=== PATIENT | female | born 1940 | race Caucasian/White ===

== ENCOUNTER 2017-01-23 20:08 | Inpatient (IN) | payer OTHER ==
[~2017-01-23] VITALS: Ht 170.2 cm; Wt 125.9 kg
[~2017-01-23 20:08] MED LIST: ABILIFY2 MG PO; ACETAMINOPHEN325 MG PO; ALLOPURINOL100 M1 PO; AMOXICILLIN/CL875 MG PO; BACTRIM DS1 TAB PO; CARDIZEM C1 PO; COUMADIN3 MG PO; COUMADIN4 MG PO; DULCOLAX5 MG PO; FUROSEMIDE20 MG PO; HUMALOG100 MG/ML SC; KLOR-CON 1010 MEQ PO; LASIX40 MG PO; LEVEMIR FL100 UNIT/M SC; LISINOPRIL10 MG PO; LOPERAMIDE HCL2 MG PO; MAG-OX 400400 MG PO; MILK OF MAGNESI10 ML; MULTIPLE VITAMIN PO; MYLANT1 PO; NIZORAL2 %; OSCAL PO; PANTOPRAZOLE SO40 MG PO; PRAVACHOL20 MG PO; SENNA-LAX8.6 MG PO; TRIAMCINOLONE0.025 %; VITAMIN D-31000 UNIT PO; WARFARIN SODIUM3 MG PO; WELLBUTRIN100 MG PO; [UNRECOGNIZED DRUG - OTHER] PO
--- NOTE | 2017-01-23 22:14 | ED ORDER SUMMARY ---
..... Patient: MAYURI BRIAN OrderSheet [facility] VisitID: [id number] [place] [place] [address] 76y, F Registration Date/Time: 01/23/2017 ORDER SHEET Weight: 134.7 kg (measured) Allergies: Iodine, Latex GENERAL ORDERS: Blood Culture (No) (N/A) Urgent (20:19 01/23/2017 Luis SALMON) (Ack 21:03 Hemalatha) (21:13 RCollier R.N.) Transformer Assembly Supervisor (Continuous) (20:20 01/23/2017 Luis SALMON) (20:39 JQuivey R.N.) Chest 1V Urgent (20:01/23/2017 Luis SALMON) (20:37 MCampbell) UA-Culture if indicated Urgent (20:20 01/23/2017 Luis SALMON) (Ack 21:03 Hemalatha) (21:33 RCollier R.N.) Cardiac Panel Stat (20:20 01/23/2017 Luis SALMON) (Ack 21:03 Hemalatha) (21:13 RCollier R.N.) Urine Drug Screen Urgent (20:20 01/23/2017 Luis SALMON) (Ack 21:03 Hemalatha) (21:33 RCollier R.N.) Oxygen (2 L/min) (NC) (20:20 01/23/2017 Luis SALMON) (20:39 JQuivey R.N.) Pulse oximeter (20:20 01/23/2017 Luis SALMON) (20:39 JQuivey R.N.) Lactate, Serum Urgent (20:42 01/23/2017 Luis SALMON) (Ack 21:03 Hemalatha) (21:13 RCollier R.N.) PCT (Procalcitonin) Urgent (20:42 01/23/2017 Luis SALMON) (Ack 21:03 Hemalatha) (21:13 RCollier R.N.) CRP Urgent (20:42 01/23/2017 Luis SALMON) (Ack 21:03 Hemalatha) (21:13 RCollier R.N.) PT with INR Urgent (21:45 01/23/2017 Luis SALMON) (21:54 RCollier R.N.) CT Head wo Cont Urgent (21:55 01/23/2017 Luis SALMON) (Ack 22:08 Hemalatha) (22:26 MCampbell) ABG (G) Urgent (22:21 01/23/2017 Luis SALMON) (22:58 RCollier R.N.) MEDICATION ORDERS: Albuterol Neb Tx 1 unit dose (NOW) (02:22 01/24/2017 AASHISHollier R.N. verbal order read back to Luis SALMON) (Ack 2:24 RCollier R.N.) (2:31 RCollier R.N.) verbal from Dr. Jan Roper IV FLUIDS: Levaquin IV 750 mg/150 mL (NOW) (20:19 01/23/2017 Luis SALMON) (Ack 20:44 RCollier R.N.) (21:12 RCollier R.N.) IV NS : initial bolus 500 mL (1000 mL/hr), then 250 mL/hr for 4h (NOW); Routine (20:19 01/23/2017 Luis SALMON) (Ack 20:44 RCollier R.N.) (21:13 RCollier R.N.) Vancomycin IV 25 mg/kg (NOW) (20:57 01/23/2017 Luis SALMON) (Ack 21:13 RCollier R.N.) (22:48 RCollier R.N.) ORDER SHEET NOTES: [Electronically signed by Jeannette Lee R.N. (03:21 01/24/2017)] [Electronically signed by Mikal Cano MD (20:43 01/24/2017)] [Electronically locked/signed by Jeannette Lee R.N. (03:21 01/24/2017)]
--- NOTE | 2017-01-23 22:14 | ED NURSING NOTES ---
Clinical Report - Nurses [facility] [address] [place] [address] 01/23/2017 20:08 Patient: MAYURI BRIAN TRIAGE Triage time 20:10. Chief Complaint: ALTERED MENTAL STATUS, LOSS OF CONSCIOUSNESS and UNRESPONSIVE. 20:15- size 7 nasal trumpet placed by EDMD. --20:15 Jeannette Lee R.N. 20:16 01/23/17. BP: 134/53. HR: 113. RR: 19. O2 saturation: 86% on nasal cannula at 4 liters/minute. Temp: 96.6 F. Rizvi-Glover pain scale: 10. --20:18 Jeannette Lee R.N. IONA COMA SCORE: Iona Coma Scale: 9- eyes open to pain (2); best verbal response- incoherent speech (2); best motor response- localizes to pain (5). --20:27 Tyler Bennett R.N. Weight: 134.7 kg measured. Height/Length: 66 inches Estimated. BMI: 48. --20:17 Jeannette Lee R.N. Medications Allopurinol Oral 100 mg, daily. ARIPiprazole Oral 2 mg q day. Calcium 600+D Oral, daily. --20:22 Jeannette Lee R.N. Cardizem Oral 180 mg, daily. Coumadin Oral 3 mg, daily (5 days a week. 4mg 2 days a week). Dulcolax Oral (Tablet Delayed Release 5 mg) 2 tablets, PRN. Jayna lanta 15 ml prn. HumaLOG Subcutaneous 5 units q am and sliding scale before meals, every AM. Ketoconazole External. Lasix Oral 40 mg, daily. Levemir FlexTouch Subcutaneous (Solution Pen-injector 100 unit/mL). Lisinopril Oral 10 mg, daily. Loperamide prn. Milk of Magnesia Oral, as needed. Multivitamins Oral 1 pill, daily. Pantoprazole Sodium Oral 40 mg, daily. Potassium Chloride Oral 20 meq, at bedtime. Pravastatin Sodium Oral 20 mg, daily. Senna Oral (Tablet 8.6 mg) 1 tablet, as needed. Triamcinolone Acetonide External. Tylenol Oral 325 mg, 4x a day as needed. Vitamin D (Cholecalciferol) Oral 1000units, daily. Wellbutrin Oral 100 mg, 2x a day (100mg as evening dose.). --20:22 Jeannette Lee R.N. Abilify Oral (Tablet 2 mg) 2 tablets, daily. --20:41 Jeannette Lee R.N. Bisacodyl Oral (Tablet Delayed Release 5 mg) 2 tablets, as needed. --20:58 Jeannette Lee R.N. Calcium + D Oral (Tablet Chewable 500-1000-40 mg-unt-mcg) 1 tablet, twice daily. --20:58 Jeannette Lee R.N. Klor-Con M20 Oral (Tablet Extended Release 20 meq) 2 tablets, daily. --21:00 Jeannette Lee R.N. Pravastatin Sodium Oral (Tablet 20 mg) 1 tablet, at bedtime. --21:08 Jeannette Lee R.N. Ranitidine HCl Oral (Capsule 150 mg) 1 capsule, daily. --21:08 Jeannette Lee R.N. Torsemide Oral (Tablet 20 mg) 3 tablets, daily. --21:09 Jeannette Lee R.N. TraZODone HCl Oral 25mg, at bedtime. --21:09 Jeannette Lee R.N. Warfarin Sodium Oral (Tablet 3 mg) 1 tablet, daily. --21:10 Jeannette Lee R.N. The following entry was struck and corrected by Jeannette Lee R.N., 21:04 (01/23/17) Reason for correction - other(correction). <<STRICKEN ENTRY-- Levemir FlexTouch Subcutaneous. --:22 Jeannette Lee R.N. --END STRIKE>>. Allergies Iodine. Latex. --20:22 Jeannette Lee R.N. History Arrived by EMS. Primary physician (Chris). This started today at about 1700. Treatment CAN SORTER: See EMS report. --20:15 Jeannette Lee R.N. ( POLST form received upon pt's arrival. POLST states DNR, DNI, comfort measures only with use of antibiotics, if needed.). --20:28 Tyler Bennett R.N. Primary physician (Will, per daughter via telephone.). --21:54 Jeannette Lee R.N. PROBLEMS: Gastroesophageal Reflux Disease. Chronic kidney disease (unspecified). Peripheral Vascular Disease. Arthritis. Hyperlipidemia. Sleep Apnea. Atrial Fibrillation. Congestive Heart Failure. Essential Hypertension. DVT - Deep Venous Thrombosis. Depression. Cataracts. Alzheimer's Disease. Gout. Neuropathy. Anemia. Diabetes Mellitus. Edema. Kidney disease. --20:26 Jeannette Lee R.N. MRSA Infection. --21:36 Jeannette Lee R.N. PHYSICAL ASSESSMENT <<STRICKEN ENTRY-- To room via stretcher. Patient gowned. GENERAL / NEURO / PSYCH: Disoriented. Not alert. RESPIRATORY: Moderate respiratory distress (head tilt needed to maintain airway upon arrival to ED). CVS: Capillary refill less than 2 seconds. SKIN: Skin is warm and dry. --20:19 Jeannette Lee R.N. --END STRIKE>> Correction --20:22 Jeannette Lee R.N. To room via stretcher. Patient gowned. GENERAL / NEURO / PSYCH: Disoriented. Not alert. RESPIRATORY: Moderate respiratory distress (head tilt needed to maintain airway upon arrival to ED). CVS: Capillary refill is markedly greater than 2 seconds. SKIN: Skin is warm and dry. --20:22 Jeannette Lee R.N. SKIN: Skin is warm and dry. Skin breakdown noted; present on arrival. (skin breakdown noted under breasts bilaterally, lower abdominal skin folds, & non-blancable erythema noted on sacrum. Barrier wipes used during pt hygeine.). --21:44 Jeannette Lee R.N. NURSING PROGRESS NOTES Two patient identifiers checked. Call light placed in reach. Side rails up x 2. Bed placed in lowest position. Brakes of bed on. --20:19 Jeannette Lee R.N. ( EDMD at bedside upon pt's arrival to ED). --20:19 Jeannette Lee R.N. 20:20 01/23/2017 Site #1 started prior to arrival by EMS via IV in the left hand with an 20g angiocath, with aseptic technique and good blood return; one attempt (bag #1 NS (1000ml) hanging upon arrival to ED, aprox 200ml infused upon arrival. NS stopped upon arrival to await EDMD orders.). --20:21 Jeannette Lee R.N. ( [facility] contacted for current medication record. Staff reports pt was supposed to go to [facility]. ED phone number given and records requested. Attempted to contact daughter by telephone, no answer, voice mail left with return phone number and informed that pt is here, not at [facility], as she expected.). --20:38 Tyler Bennett R.N. ( all previous nursing notes done by sd, not Tyler Power RN, as charted.). --20:40 Jeannette Lee R.N. ( med list received from nursing facility. Med list updated.). --20:40 Jeannette Lee R.N. ( server systems administrator at bedside to draw blood.). --20:57 Jeannette Lee R.N. 21:00 01/23/2017 Started IV Fluids IV NS (Saline); at 250 mL/hr via site #1 via IV pump. Allergies verified and confirmed 5 rights. IV patency established. IV site checked: no pain, redness, or swelling. IV flushed thoroughly pre- and post-medication administration (500ml BOLUS complete). --21:13 Jeannette Lee R.N. 21:02 01/23/2017 Started 750 mg of Levaquin (Levofloxacin) IVPB in bag #1 150 mL; at 100 mL/hr via site #1 via IV pump. Allergies verified and confirmed 5 rights. IV patency established. IV site checked: no pain, redness, or swelling. IV flushed thoroughly pre- and post-medication administration. --21:12 Jeannette Lee R.N. hospital monitor, pulse oximeter and NIBP monitor placed on patient; monitor alarms on (placed on pt upon arrival to ED). --21:17 Jeannette Lee R.N. Family at bedside. --21:18 Jeannette Lee R.N. 8 fr in/out catheterization. Reason for indwelling catheter: patient's decreased level of consciousness. During procedure hand hygiene observed and sterile equipment and aseptic technique used. Return of yellow-colored cloudy urine. It was a complicated placement. She tolerated procedure well (procedure done by me, assisted by CHAPIN Gordon and Tyler Power RN). Patient ID band checked for patient name and birthdate: family confirmed. Catheterized urine collected with return of yellow-colored cloudy urine; sample sent to lab. Specimen labeled in the presence of the patient. --21:32 Jeannette Lee R.N. Patient hygiene performed: received partial bath. Patient is incontinent of urine. Changed patient linens and incontinence pads. Warming measures: blanket applied. --21:32 Jeannette Lee R.N. The patient was turned and repositioned on the left side with padding applied to pressure areas. --21:33 Jeannette Lee R.N. ( server systems administrator at bedside to draw additional blood samples.). --21:50 Jeannette Lee R.N. 21:55 01/23/17. BP: 98/79. HR: 113. RR: 22. O2 saturation: 90% on nasal cannula at 3 liters/minute. --21:56 Jeannette Lee R.N. Patient transported to CT by stretcher with O2 and tech. (22:15). Patient returned from CT by stretcher with O2 and nurse. (22:22). ( 2 RN assist with pt transfer, Primary RN stayed at CT during exam to monitor pt.). --22:27 Jeannette Lee R.N. ( Pt's eyes cleansed with cool, wet cloth. Dried exudate removed from right eye, per pt request.). --22:28 Jeannette Lee R.N. GENERAL / NEURO / PSYCH: Malone Coma Scale: 14- eyes open spontaneously (4); best verbal response- disoriented (4); best motor response- obeys commands (6). --22:28 Jeannette Lee R.N. 22:15 01/23/2017 Hold Levaquin IVPB: due to diagnostic studies. --22:29 Jeannette Lee R.N. 22:25 01/23/2017 Restart Levaquin IVPB: bag #1 100 mL/hr via IV pump. IV patency established. IV site checked: no pain, redness, or swelling. IV flushed thoroughly. Confirmed 5 Rights. --22:29 Jeannette Lee R.N. 22:31 01/23/17. BP: 126/98. HR: 107. RR: 24. O2 saturation: 91% on nasal cannula at 3 liters/minute. --22:33 Jeannette Lee R.N. 22:41 01/23/2017 IV Fluids IV NS Discontinued: bag #1 completed. Total amount infused: 950 mL. IV patency established. IV site checked: no pain, redness, or swelling. IV flushed thoroughly. --22:41 Jeannette Lee R.N. 22:42 01/23/2017 Started bag #2 1000 mL IV Fluids IV NS (Saline); at 250 mL/hr via site #1 via IV pump. Allergies verified and confirmed 5 rights. IV patency established. IV site checked: no pain, redness, or swelling. IV flushed thoroughly pre- and post-medication administration. --22:43 Jeannette Lee R.N. 22:42 01/23/2017 Levaquin IVPB Discontinued: bag #1 completed. Total amount infused: 150 mL. IV patency established. IV site checked: no pain, redness, or swelling. IV flushed thoroughly. --22:49 Jeannette Lee R.N. 22:46 01/23/2017 Started 1 gm of Vancomycin IVPB in bag #1 200 mL; at 200 mL/hr over 1 hour(s) via site #1 via IV pump. Allergies verified and confirmed 5 rights. IV patency established. IV site checked: no pain, redness, or swelling. IV flushed thoroughly pre- and post-medication administration (2gm ordered, 1gm bag used due to availability of medication in ED.). --22:48 Jeannette Lee R.N. ( RT at bedside to draw blood for ABG.). --22:58 Jeannette Lee R.N. Patient hygiene performed: received partial bath. Patient is incontinent of urine. Changed patient linens and diaper. assisted by Tyler Power RN. --23:12 Jeannette Lee R.N. 23:15 01/23/17. BP: 120/59. HR: 109. RR: 28. O2 saturation: 96% on nasal cannula at 3 liters/minute. --23:16 Jeannette Lee R.N. 23:48 01/23/2017 Vancomycin IVPB Discontinued: bag #1 completed. Total amount infused: 200 mL. IV patency established. IV site checked: no pain, redness, or swelling. IV flushed thoroughly. --23:50 Jeannette Lee R.N. 23:49 01/23/2017 Started 1 gm of Vancomycin IVPB in bag #2 200 mL; at 200 mL/hr over 1 hour(s) via site #1 via IV pump. Allergies verified and confirmed 5 rights. IV patency established. IV site checked: no pain, redness, or swelling. IV flushed thoroughly pre- and post-medication administration (bag #2 of 2gm order.). --23:51 Jeannette Lee R.N. ( pt had been sleeping for about 15-20 min and pt became increasingly more dyspnic. Lung sounds assessed and very little air movement heard. 2nd RN assisted in repositioning pt in bed and Oxymask placed on pt with good results. Pt now breathing easier and O2 saturation rising to 92%). --00:28 Jeannette Lee R.N. 00:28 01/24/17. BP: 102/82. HR: 111. RR: 32 (labored). O2 saturation: 92% on face mask at 5 liters/minute. --00:29 Jeannette Lee R.N. 00:45 01/24/17. BP: 155/100. HR: 109. RR: 24. O2 saturation: 93% on face mask at 5 liters/minute. --00:46 Jeannette Lee R.N. 00:49 01/24/2017 Vancomycin IVPB Discontinued: bag #2 completed. Total amount infused: 200 mL. IV patency established. IV site checked: no pain, redness, or swelling. IV flushed thoroughly. --00:49 Jeannette Lee R.N. ( Pt's niece, Madina Michael , leaves to go home. wants to be updated on any change with pt.). --01:36 Jeannette Lee R.N. The patient is calm, resting quietly and sleeping. --01:36 Jeannette Lee R.N. 01:41 01/24/17. BP: 124/74. HR: 118. RR: 28. O2 saturation: 94% on face mask at 5 liters/minute. --01:42 Jeannette Lee R.N. ( pt having multiple runs of VTach, EKG done. EDMD aware.). --02:11 Jeannette Lee R.N. ( Hospitalist, Dr Roper, consulted. Dr Roper states that since pt has history of arrythmias and is DNR/DNI, she should be taken off the cardiac monitors and no EKG be done. Verbal orders received for NEB tx for pt comfort.). --02:21 Jeannette Lee R.N. ( RT called for NEB Tx.). --02:24 Jeannette Lee R.N. ( pt taken off the cardiac monitors.). --02:25 Jeannette Lee R.N. 02:31 01/24/2017 Albuterol Neb TX 1 unit dose given. Given by the respiratory therapist. Allergies verified and confirmed 5 rights. --02:31 Jeannette Lee R.N. ( RT at bedside to give Albuterol tx). --02:31 Jeannette Lee R.N. 02:37 01/24/2017 Albuterol Neb TX discontinued due to improvement in patient condition. --02:37 Jeannette Lee R.N. 02:42 01/24/2017 IV Fluids IV NS Discontinued: bag #2 completed. Total amount infused: 1000 mL. IV patency established. IV site checked: no pain, redness, or swelling. IV flushed thoroughly. --02:42 Jeannette Lee R.N. 02:51 01/24/17. BP: 129/81. HR: 108. RR: 28. O2 saturation: 92% on face mask at 5 liters/minute. --02:52 Jeannette Lee R.N. The patient is sleeping. --02:52 Jeannette Lee R.N. DISPOSITION / DISCHARGE Bed obtained but not ready (room 301). --00:04 Jeannette Lee R.N. 03:07 01/24/17. BP: 146/84. HR: 127. RR: 28. O2 saturation: 95% on face mask at 5 liters/minute. Pain level now: 0/10. --03:08 Jeannette Lee R.N. 03:08 01/24/2017 Site #[address] upon admission. Flushed with 10 mL saline; flushes easily. --03:08 Jeannette Lee R.N. Disposition: observation in Acute Care. --03:09 Jeannette Lee R.N. Patient has no belongings. --03:09 Jeannette Lee R.N. Report was given to a nurse via a phone call. Report included patient's care, treatment, medications, reviewed medication reconcilliation, and condition (including any recent changes or anticipated changes). All questions were answered. Report was acknowledged. --03:09 Jeannette Lee R.N. Transported via stretcher by transport team with IV and O2. --03:21 Jeannette Lee R.N. Locked/Released at 01/24/2017 3:21 by Jeannette Lee R.N.
--- NOTE | 2017-01-23 22:14 | ED ORDER SUMMARY ---
..... Patient: MAYURI BRIAN OrderSheet [facility] VisitID: [id number] [address] [place] [address] 76y, F Registration Date/Time: 01/23/2017 ORDER SHEET Weight: 134.7 kg (measured) Allergies: Iodine, Latex GENERAL ORDERS: Blood Culture (No) (N/A) Urgent (20:19 01/23/2017 Luis SALMON) (Ack 21:03 Hemalatha) (21:13 RCollier R.N.) State Historical Society Director (Continuous) (20:20 01/23/2017 Luis SALMON) (20:39 JQuivey R.N.) Chest 1V Urgent (20:01/23/2017 Luis SALMON) (20:37 MCampbell) UA-Culture if indicated Urgent (20:20 01/23/2017 Luis SALMON) (Ack 21:03 Hemalatha) (21:33 RCollier R.N.) Cardiac Panel Stat (20:20 01/23/2017 Luis SALMON) (Ack 21:03 Hemalatha) (21:13 RCollier R.N.) Urine Drug Screen Urgent (20:20 01/23/2017 Luis SALMON) (Ack 21:03 Hemalatha) (21:33 RCollier R.N.) Oxygen (2 L/min) (NC) (20:20 01/23/2017 Luis SALMON) (20:39 JQuivey R.N.) Pulse oximeter (20:20 01/23/2017 Luis SALMON) (20:39 JQuivey R.N.) Lactate, Serum Urgent (20:42 01/23/2017 Luis SALMON) (Ack 21:03 Hemalatha) (21:13 RCollier R.N.) PCT (Procalcitonin) Urgent (20:42 01/23/2017 Luis SALMON) (Ack 21:03 Hemalatha) (21:13 RCollier R.N.) CRP Urgent (20:42 01/23/2017 Luis SALMON) (Ack 21:03 Hemalatha) (21:13 RCollier R.N.) PT with INR Urgent (21:45 01/23/2017 Luis SALMON) (21:54 RCollier R.N.) CT Head wo Cont Urgent (21:55 01/23/2017 Luis SALMON) (Ack 22:08 Hemalatha) (22:26 MCampbell) ABG (G) Urgent (22:21 01/23/2017 Luis SALMON) (22:58 RCollier R.N.) MEDICATION ORDERS: Albuterol Neb Tx 1 unit dose (NOW) (02:22 01/24/2017 AASHISHollier R.N. verbal order read back to Luis SALMON) (Ack 2:24 RCollier R.N.) (2:31 RCollier R.N.) verbal from Dr. Jan Roper IV FLUIDS: Levaquin IV 750 mg/150 mL (NOW) (20:19 01/23/2017 Luis SALMON) (Ack 20:44 RCollier R.N.) (21:12 RCollier R.N.) IV NS : initial bolus 500 mL (1000 mL/hr), then 250 mL/hr for 4h (NOW); Routine (20:19 01/23/2017 Luis SALMON) (Ack 20:44 RCollier R.N.) (21:13 RCollier R.N.) Vancomycin IV 25 mg/kg (NOW) (20:57 01/23/2017 Luis SALMON) (Ack 21:13 RCollier R.N.) (22:48 RCollier R.N.) ORDER SHEET NOTES: [Electronically signed by Jeannette Lee R.N. (03:21 01/24/2017)] [Electronically signed by Mikal Cano MD (20:43 01/24/2017)] [Electronically locked/signed by Jeannette Lee R.N. (03:21 01/24/2017)]
--- NOTE | 2017-01-23 22:14 | ED CLINICAL REPORT ---
Clinical Report - Physicians/Mid Levels [facility] [address] [place] [address] 01/23/2017 20:08 Patient: MAYURI BRIAN Time Seen: 20:17 Jan 23 2017. Arrived- By ambulance. Historian- patient and EMS personnel. CPT: ER phys charges level 5 (#[id number]). HISTORY OF PRESENT ILLNESS Chief Complaint: DECREASED MENTAL STATUS. This started just prior to arrival and is still present. The patient was found unresponsive and is described as having decreased responsiveness. The patient was found unresponsive. The patient has had weakness. Usually is alert and oriented X3. She is usually unable to walk and usually uses a wheelchair. Similar symptoms previously: Recent medical care: Not recently seen/assessed. REVIEW OF SYSTEMS No fever, headache, head injury, dizziness or chest pain. No sputum production, sore throat or throat, abdominal pain or nausea. No diarrhea, black stools, difficulty with urination, skin rash or vomiting. No bloody stools, diabetic symptoms or easy bruising. The patient has had difficulty breathing, a cough and weakness. She has had difficulty walking. history from Son and Daughter -in-Law. All systems otherwise negative, except as recorded above. PAST HISTORY ( Gout. Neuropathy. Anemia. Diabetes Mellitus. Edema. Kidney disease. Additional Surgeries: Adenoidectomy. Knee Surgery. Tonsillectomy.). Medications: Warfarin Sodium Oral (Tablet 3 mg) 1 tablet, daily. TraZODone HCl Oral 25mg, at bedtime. Torsemide Oral (Tablet 20 mg) 3 tablets, daily. Ranitidine HCl Oral (Capsule 150 mg) 1 capsule, daily. Pravastatin Sodium Oral (Tablet 20 mg) 1 tablet, at bedtime. Klor-Con M20 Oral (Tablet Extended Release 20 meq) 2 tablets, daily. Calcium + D Oral (Tablet Chewable 500-1000-40 mg-unt-mcg) 1 tablet, twice daily. Bisacodyl Oral (Tablet Delayed Release 5 mg) 2 tablets, as needed. Abilify Oral (Tablet 2 mg) 2 tablets, daily. Cardizem Oral 180 mg, daily. Coumadin Oral 3 mg, daily (5 days a week. 4mg 2 days a week). Dulcolax Oral (Tablet Delayed Release 5 mg) 2 tablets, PRN. Jayna lanta 15 ml prn. HumaLOG Subcutaneous 5 units q am and sliding scale before meals, every AM. Ketoconazole External. Lasix Oral 40 mg, daily. Levemir FlexTouch Subcutaneous (Solution Pen-injector 100 unit/mL). Lisinopril Oral 10 mg, daily. Loperamide prn. Milk of Magnesia Oral, as needed. Multivitamins Oral 1 pill, daily. Pantoprazole Sodium Oral 40 mg, daily. Potassium Chloride Oral 20 meq, at bedtime. Pravastatin Sodium Oral 20 mg, daily. Senna Oral (Tablet 8.6 mg) 1 tablet, as needed. Triamcinolone Acetonide External. Tylenol Oral 325 mg, 4x a day as needed. Vitamin D (Cholecalciferol) Oral 1000units, daily. Wellbutrin Oral 100 mg, 2x a day (100mg as evening dose.). Allopurinol Oral 100 mg, daily. ARIPiprazole Oral 2 mg q day. Calcium 600+D Oral, daily. Allergies: Iodine. Latex. SOCIAL HISTORY Never smoker. No alcohol use or drug use. ADDITIONAL NOTES The nursing notes have been reviewed. PHYSICAL EXAM Vital Signs: 01/23/2017 20:16 BP: 134/53. HR: 113. RR: 19. O2 saturation: 86%. Temp: 96.6 F. Rizvi-Glover pain scale: 4/10. Appearance: Lethargic. She is obtunded. Head: Head atraumatic. Eyes: Pupils equal, round and reactive to light. ENT: (Airway obstructed by tongue and head position.). Neck: Normal inspection. Neck supple. CVS: Abnormal rate. Normal heart rate and rhythm. Heart sounds normal. Pulses normal. Respiratory: Moderate respiratory distress with tachypnea and weak respiratory effort. Rhonchi present. Abdomen: Soft and nontender. Obese. Back: Normal inspection. Skin: Skin warm. Normal skin color. No rash. Extremities: Extremities exhibit normal ROM. Neuro: Altered mental status: stuporous and disoriented. Eyes open to pain. Best verbal response: inappropriate speech. Best motor response: localizes to pain. Alertness is decreased. (Moves all 4 to pain.). LABS, X-RAYS, AND EKG Chest X-ray: (RLL pneumonia and or effusion. Possible LLL infiltrate. Poor breath.). Views: AP (portable). Technique: poor inspiration, under penetrated. The X-rays were independently viewed by me and interpreted contemporaneously by me. CT Head: No acute changes. Head CT performed without contrast. The study was independently viewed by me, interpreted by the radiologist and discussed with the radiologist. Laboratory Tests: PT with INR: (MANJINDER: 01/24/2017 07:00) ( MsgRcvd 01/24/2017 07:39) Final results Test Result Flag Units (Reference) INR 2.1 H (0.8-1.2) Low Intensity Therapy: INR 1.5-2.0 PT range 18.5-23.1Mod.Intensity Therapy: INR 2.0-3.0 PT range 23.1-31.5High Intensity Therapy: INR 2.5-3.5 PT range 27.4-35.5High Intensity Therapy 2: INR 3.0-4.0 PT range 31.5-39.3 BMP: (MANJINDER: 01/24/2017 07:00) ( MsgRcvd 01/24/2017 14:39) Final results Test Result Flag Units (Reference) GLUCOSE 242 H mg/dL (70-110) BUN 37 H mg/dL (7-18) CREATININE 1.5 H mg/dL (0.6-1.3) Estimated GFR 35.79 mL/min Estimated GFR- 43.38 mL/min Note: Persistent reduction over 3 months in eGFR<60 mL/min/1.73 m2 defines CKD. Patients with eGFR values>=60 mL/min/1.73 m2 may also have CKD if evidence ofpersistent proteinuria. Additional information may be foundat [email or web address]. SODIUM 137 mmol/L (136-145) CHLORIDE 101 mmol/L (98-107) CARBON DIOXIDE 27 mmol/L (21-32) CALCIUM 8.3 L mg/dL (8.5-10.1) BNP: (MANJINDER: 01/24/2017 07:00) ( MsgRcvd 01/24/2017 10:40) Final results Test Result Flag Units (Reference) B-TYPE NATRIURETIC PEPTIDE 851 H pg/ml (5-100) UA-Culture if indicated: (MANJINDER: 01/23/2017 21:20) ( [facility] 01/23/2017 21:51) Final results Test Result Flag Units (Reference) URINE COLOR YELLOW URINE APPEARANCE SL CLOUDY URINE GLUCOSE NEGATIVE (NEGATIVE) URINE BILIRUBIN NEGATIVE (NEGATIVE) URINE KETONE NEGATIVE (NEGATIVE) URINE SPECIFIC GRAVITY 1.025 (1.010-1.030) URINE PH 6.0 (5.0-8.0) URINE PROTEIN 2+ (NEGATIVE) URINE UROBILINOGEN 0.2 EU/dL (0.2-1.0) URINE NITRITE NEGATIVE (NEGATIVE) URINE BLOOD 3+ (NEGATIVE) URINE LEUK ESTERASE NEGATIVE (NEGATIVE) URINE RBC 10-25 rbc/hpf (0-1) URINE WBC 1-3 wbc/hpf (0-1) URINE EPITHELIAL CELLS RARE EPI/hpf (0-5) URINE BACTERIA TRACE (<1+) (NONE SEEN) URINE COMMENT CULT NOT INDICATED 2+ AMORPHOUSURINE CULTURES ARE SET-UP BASED ON THE FOLLOWING CRITERIA:POSITIVE NITRITEPOSITIVE LEUKOCYTE ESTERASEGREATER THAN 10 WHITE BLOOD CELLSMODERATE (2+) OR GREATER BACTERIA CBC w Diff: (MANJINDER: 01/23/2017 21:00) ( [facility] 01/23/2017 21:18) Final results Test Result Flag Units (Reference) WHITE BLOOD COUNT 11.7 H K/uL (4.5-11.5) RED BLOOD COUNT 4.23 M/uL (4.00-5.20) HEMOGLOBIN 13.5 gm/dL (12.0-16.0) HEMATOCRIT 42.9 % (36.0-46.0) MEAN CELL VOLUME 101 H fL (80-100) MEAN CORPUSCULAR HGB 32 pg (26-34) MEAN CORPUSCULAR HGB CONC 32 g/dL (31-37) RED CELL DISTRIBUTION WIDTH 15.2 H % (11.6-14.8) PLATELET COUNT 214 K/uL (150-400) NEUTROPHIL % 86.3 H % (50-75) LYMPH % 8.0 L % (25-40) MONO % 5.2 % (3-14) EOSINOPHIL % 0.4 % (0-4) BASOPHIL % 0.1 % (0-2) PT with INR: (MANJINDER: 01/23/2017 21:56) ( [facility] 01/23/2017 22:16) Final results Test Result Flag Units (Reference) INR 2.1 H (0.8-1.2) Low Intensity Therapy: INR 1.5-2.0 PT range 18.5-23.1Mod.Intensity Therapy: INR 2.0-3.0 PT range 23.1-31.5High Intensity Therapy: INR 2.5-3.5 PT range 27.4-35.5High Intensity Therapy 2: INR 3.0-4.0 PT range 31.5-39.3 [id number]: (MANJINDER: 01/23/2017 21:00) ( [facility] 01/23/2017 23:48) Final results Test Result Flag Units (Reference) C-REACTIVE PROTEIN 5.2 H mg/dL (0.0-0.9) Lactate, Serum: (MANJINDER: 01/23/2017 21:00) ( [facility] 01/23/2017 21:45) Final results Test Result Flag Units (Reference) LACTIC ACID 1.0 mmol/L (0.4-2.0) [id number]: (MANJINDER: 01/23/2017 21:00) ( [facility] 01/23/2017 21:57) Final results Test Result Flag Units (Reference) PROCALCITONIN 0.7 H ng/mL (0-0.5) PCT Concentration: Interpretation : Risk/option for action PCT <=0.5 ng/mL : Systemic : Low risk forinfection(sepsis): progression to severeis not likely. : systemic infection.Local bacterial : CAUTION-PCT levelsinfection is : below 0.5 ng/mL do notpossible. : exclude an infection,because localizedinfections (withoutsystemic signs) may beassociated with suchlow levels. If PCT ismeasured very earlyafter a bacterialchallenge (usually <6hours), these valuesmay still be low. Inthis case PCT shouldbe re-assessed 6-24hours later. PCT >0.5 and : Systemic infection: Moderate risk for<= 2 ng/mL : (sepsis) is : progression to severepossible, but : systemic infection.other conditions : The patient should beare known to : closely monitoredelevate PCT. : both clinically andby re-assessing PCTwithin 6-24 hours. PCT > 2 ng/mL : Systemic infection: High risk for(sepsis) is likely: progression to severeunless other : systemic infection.causes are known. : PCT >= 10 ng/mL : Important systemic: High likelihood ofinflammatory : severe sepsis orresponse, almost : septic shock.exclusively due to:severe bacterial :sepsis or septic :shock. : Urine Drug Screen: (MANJINDER: 01/23/2017 21:20) ( MsgRcvd 01/23/2017 22:28) Final results Test Result Flag Units (Reference) AMPHETAMINE/METHAMPHETAMINE NEGATIVE (NEGATIVE) BARBITURATE NEGATIVE (NEGATIVE) BENZODIAZEPINE NEGATIVE (NEGATIVE) CANNABINOID NEGATIVE (NEGATIVE) COCAINE NEGATIVE (NEGATIVE) ECSTASY POSITIVE H (NEGATIVE) METHADONE NEGATIVE (NEGATIVE) OPIATE NEGATIVE (NEGATIVE) The urine drug screen is a qualitative screening test fordrug overdose and abuse. All screen results should beconsidered as presumptive.Drugs screened for are as follows:BenzodiazepinesCocaineAmphetamines/MetamphetaminesTHC (Tetrahydrocannabinol)OpiatesBarbituratesEcstasyMethadonePositive results are unconfirmed. For confirmation, notifythe lab for the specimen to be sent to the reference lab.All confirmations must be performed by a differentmethodology.The ingestion of natural herbal and plant productscontaining Ephedra/Ephedra metabolites can produce in urineone or more substances capable of cross reacting withamphetamine/methamphetamine immunoassays. These testsprovide a preliminary result only. A more specificalternative chemical method must be used to obtain aconfirmed analytical result. CHEM 13 PANEL: (MANJINDER: 01/23/2017 21:00) ( MsgRcvd 01/23/2017 21:38) Final results Test Result Flag Units (Reference) GLUCOSE 231 H mg/dL (70-110) BUN 38 H mg/dL (7-18) CREATININE 1.4 H mg/dL (0.6-1.3) Estimated GFR 38.75 mL/min Estimated GFR- 46.97 mL/min Note: Persistent reduction over 3 months in eGFR<60 mL/min/1.73 m2 defines CKD. Patients with eGFR values>=60 mL/min/1.73 m2 may also have CKD if evidence ofpersistent proteinuria. Additional information may be foundat [email or web address]. SODIUM 138 mmol/L (136-145) POTASSIUM 6.1 H mmol/L (3.5-5.1) CHLORIDE 104 mmol/L (98-107) CARBON DIOXIDE 28 mmol/L (21-32) CALCIUM 8.9 mg/dL (8.5-10.1) TOTAL PROTEIN 7.7 g/dL (6.4-8.2) ALBUMIN 3.0 L g/dL (3.3-5.0) BILIRUBIN, TOTAL 0.3 mg/dL (0.0-1.0) ALKALINE PHOSPHATASE 97 U/L (46-116) AST (SGOT) 24 U/L (15-37) ALT (SGPT) 22 U/L (12-78) MAGNESIUM 2.0 mg/dL (1.8-2.4) CPK 107 U/L (24-260) TROPONIN I <0.05 ng/mL (0.00-1.5) TROPONIN REFERENCE RANGE:<0.1 NEGATIVE0.1-1.5 INDETERMINANT>1.5 POSITIVE ABG: (MANJINDER: 01/23/2017 22:21) ( MsgRcvd 01/23/2017 23:10) Final results Test Result Flag Units (Reference) FIO2 32 % (20-101) ABG MODE OF DELIVERY NC MODIFIED EDDI TEST POSITIVE? YES LITERS PER MIN. 3 L/MIN (0-20) ABG PATIENT RESP RATE 20 /MIN ARTERIAL BLOOD GAS SITE LR ARTERIAL BLOOD GAS pH 7.22 *L (7.35-7.45) ABG PCO2 75.4 *H mmHg (35-45) ABG PO2 61.0 mmHg (60.0-80.0) ABG BASE EXCESS 2.6 H mmol/L (-6.0--6.0) ABG HCO3 31.0 *H mmol/L (20.0-26.0) ABG TCO2 33.3 H mmol/L (24.0-30.0) ABG [id number] 79.7 H mmHg (7.0-14.0) *NOTE: Normal rangeis based on aFIO2 of 21% ABG SAT O2 89.8 L % (95.1-100.0) ABG TOTAL HEMOGLOBIN 12.3 g/dL (12.0-16.0) ABG O2 HEMOGLOBIN 88.1 L % (95.0-100.0) ABG CARBOXYHEMOGLOBIN 2.0 H % (0.5-1.5) ABG METHEMOGLOBIN -0.1 L % (0.4-1.5) ABG RHEMOGLOBIN 10.0 % . PROGRESS AND PROCEDURES Course of Care: Pt has a POLST : DNR except meds and oxygen. IV NS BC times 2 Levaquin 750 mg IV Vancomycin 25 mg /kg. Discussed case with on-call health care provider, (Judson). Reviewed test results. Agreed upon treatment plan and decision to admit. Health care provider will see patient in hospital. Patient/family counseled. Old medical records ordered. Disposition orders written. Disposition: Admitted to Acute Care. CLINICAL IMPRESSION Changed mental status with lethargy and confusion. Bacterial pneumonia with hypoxemia. Vital signs recorded and reviewed; empiric antibiotics given in the ED. pre-renal azotemia Dehydration No Code. (Electronically signed by Mikal Cano MD 01/24/2017 20:43)
--- NOTE | 2017-01-23 22:33 | DIAGNOSTIC IMAGING REPORT ---
PROCEDURE: XR CHEST 1 VIEW INDICATION: SHORTNESS OF BREATH TECHNIQUE: Single view chest. 2015 hours COMPARISON: 11/25/2015 FINDINGS: The lung volumes are quite low. Given this, the visible portions of the cardiomediastinal contour are stable, demonstrating probable mild cardiomegaly. Severe right hemidiaphragm eventration, chronic. Interval improvement in left perihilar parenchymal aeration. Bibasilar atelectatic changes. Diffuse interstitial thickening. Probable small right effusion. Grossly intact osseous structures. IMPRESSION: 1. Limited due to low lung volumes. 2. Probable bibasilar atelectatic changes although underlying infection is not excluded. 3. Probable small right effusion. 4. Interval clearance of left mid lung infiltrate. 5. Grossly stable mild cardiomegaly, only partially imaged given technique and low lung volumes.
--- NOTE | 2017-01-23 22:44 | DIAGNOSTIC IMAGING REPORT ---
PROCEDURE: CT HEAD WITHOUT CONTRAST INDICATION: MENTAL STATUS CHANGE TECHNIQUE: Axial CT images were acquired through the head. Coronal and sagittal reformations were created. COMPARISON: None. FINDINGS: Suboptimal study given unavoidable patient motion. Mild cerebral cortical atrophy. Mild patchy hypodensity in the periventricular and subcortical white matter. No intracranial hemorrhage or extraaxial fluid collections. Ventricles are normal in size, shape and position. There is no mass, mass effect or midline shift. The trimble-white matter differentiation is normal. There is no edema. Moderate internal carotid artery atherosclerosis. The calvarium is intact. Hyperostosis frontalis interna. The paranasal sinuses and mastoid air cells are normally aerated. The extracranial soft tissues and orbits are normal. A nasotracheal tube is in place. IMPRESSION: 1. Motion artifact decreases the quality of the study. 2. No definite acute process. 3. Mild age related atrophy and white matter changes. 4. Findings discussed with Dr. Gutierres in the emergency room at [address] scans at this facility use dose modulation, iterative reconstruction, and/or weight-based dosing when appropriate to reduce radiation dose to as low as reasonably achievable.
--- NOTE | 2017-01-24 01:01 | Progress Note ---
Subjective General Admission History and Physical Examination Patient Name: Deborah Cote eAdmission Date: January 23, 2017 Primary Care Provider: Reese rimma Attending Physician: Margareth Peters M.D. Admitting Physician: Jan Roper M.D. Code Status: No CODE Room: SUBJECTIVE Historian: Family, ER Reliability: non verbal Chief Complaint: altered mental status hypoxia History of Present Illness: The patient is a 77-year-old white female with a PMH of history of VIET, Obesity , Depression, DVT, Gout, Diabetes who presented to [facility] emergency room on the day of admission non-responsive with mental status and notable hypoxia, Pt. was seen in the [facility] ER for an evaluation and findings consistent with pain related to a potential pneumonia, poor upper airway control. Secondarily the patient was admitted for further evaluation and treatment by Jan Roper M.D. The patient is seen today in the emergency department. Patient appears to be uncomfortable and anxious. In a nasal trumpet was placed earlier to avoid excessive upper airway occlusion. Patient since then has done better. She remains hypoxic on oxygen by nasal cannula but more responsive. Patient is presenting with her granddaughter. Her Granddaughter states she has been i feeling relatively well this week until yesterday. Granddaughter states that she can confused and less interested in think should then before. She did not necessarily know the time or place and did not recognize names. Today, her granddaughter reports progression of the illness. She is brought here by medics. Inside the [facility] ED patient. Obtunded, with poor oxygen saturations. Dr. Cano, placed a nasal trumpet because he was concerned that the tongue was blocking the airway. Granddaughter relays no illness. She is followed regularly by Dr. Solis. No changes in mentation. PAST MEDICAL HISTORY Illnesses: 1. Alzheimer's disease. 2. Diabetes mellitus. 3. Macular edema. 4. Major depressive disorder. 5. Gout 6. History of DVT 7. Hypertension. 8. Congestive heart failure. 9. A. fib 10. Osteoarthritis. 11. CPK 80 12. Anemia. 13. Neuropathic pain. 14. Obesity. 15. GERD. Allergies: 1. INCLUDE IODINE. 2. LATEX. 3. NATURAL RUBBER. Medications: Abilify 4 mg by mouth daily Acetaminophen 325 mg times per day. 2 Allopurinol 100 mg by mouth daily Bisodyl 10 mg tab po daily when necessary Calcium carbonate 600 - 400 1 tablet daily Diltiazem extended release 180 mg daily Dulcolax 10 mg 1 capsule daily Humalog 11 units subcutaneous with meals Levemir 30 units subcutaneous daily Klor-Con 10 20 mmHg 2 tablets daily Lisinopril 10 mg daily. Needle OM 1200 mg for 15 mils Warfarin 3 mg by mouth Monday, Monday, Monday, Monday, , Monday Trazodone 25 mg as needed for sleep, 2 tabs daily at bedtime Warfarin 3 mg daily Surgery: Unknown Others Uninformed on surgeries or procedures Injuries: 1. Multiple injuries; uninformed on dates of injuries. Hospitalizations: 1. Hospital at least one year ago November. FAMILY HISTORY Mother in her 80s, possible pancreatic cancer unknown related Father unknown 80s passed from some form of cancer r Other significant family history: None SOCIAL HISTORY 1. Marital Status: 2. Islam: Unknown 3. Education: uknown 4. Employment History: 5. Occupational health exposures: None known HABITS 1. Tobacco: None 2. Drugs: None 3. Alcohol: None 4. Caffeine: uknown none HEALTH SUPERVISION Item/Test 1. No recent health maintenance IMMUNIZATIONS: 1. Pneumococcal: Up-to-date 2. Influenza: Up-to-date 3. Tetanus: Unknown ADVANCED DIRECTIVES: 1. Living well: Yes 2. POLST: At home 3. Code Status: No code 4. Durable [employer]; daughter 5. Donor card: No unknown REVIEW OF SYSTEMS Remarkable for those things stated in the history of present illness and past medical history. Seventeen point review of system completed with the following notable findings: Constitutional Weakness, Malaise. Eyes Denies: Conjunctival Inflammation. Respiratory SOB w/exertion. Physical Exam Vital Signs / I&Os Vital Signs Date Time Temp Pulse Resp B/P Pulse O2 O2 Flow FiO2 Ox Delivery Rate 01/23 2345 3.0 General Appearance Mild distress, awake, responsive, however ears to be in distress. HEENT Atraumatic Lungs coarse breath sounds, rhonchi, bilateral rales Neck no notable bruits Cardiovascular irregular irregular, Systolic murmur Abdomen Soft, No rebound Extremities No edema, multiple excoriations and skin lesions on back.. Have callus formation bilateral feet. Skin dryness, flaking on the back. Multiple SK, excoriations Erythematous changes in the sacral Psych/Mental Status Confused LAB Results Laboratory Tests 01/23 01/23 01/23 01/23 2100 2100 2100 2100 Chemistry Plasma Sodium (136 - 145 mmol/L) 138 Plasma Potassium (3.5 - 5.1 mmol/L) 6.1 Plasma Chloride (98 - 107 mmol/L) 104 CO2 (Enzymatic) (21 - 32 mmol/L) 28 BUN (7 - 18 mg/dL) 38 Creatinine (0.6 - 1.3 mg/dL) 1.4 Est GFR ( Amer) (mL/min) 46.97 Est GFR (Non-Af Amer) (mL/min) 38.75 Glucose (70 - 110 mg/dL) 231 Lactic Acid (0.4 - 2.0 mmol/L) 1.0 Plasma Calcium (8.5 - 10.1 mg/dL) 8.9 Plasma Magnesium (1.8 - 2.4 mg/dL) 2.0 Total Bilirubin (0.0 - 1.0 mg/dL) 0.3 AST (15 - 37 U/L) 24 ALT (12 - 78 U/L) 22 Alkaline Phosphatase (46 - 116 U/L) 97 Creatine Kinase (24 - 260 U/L) 107 Troponin (0.00 - 1.5 ng/mL) <0.05 C-Reactive Protein (0.0 - 0.9 mg/dL) 5.2 Total Protein (6.4 - 8.2 g/dL) 7.7 Albumin (3.3 - 5.0 g/dL) 3.0 Procalcitonin (0 - 0.5 ng/mL) 0.7 Hematology WBC (4.5 - 11.5 K/uL) 11.7 RBC (4.00 - 5.20 M/uL) 4.23 Hgb (12.0 - 16.0 gm/dL) 13.5 Hct (36.0 - 46.0 %) 42.9 MCV (80 - 100 fL) 101 MCH (26 - 34 pg) 32 RDW (11.6 - 14.8 %) 15.2 Neut % (Auto) (50 - 75 %) 86.3 Lymph % (Auto) (25 - 40 %) 8.0 Finney % (Auto) (3 - 14 %) 5.2 Eos % (Auto) (0 - 4 %) 0.4 Baso % (Auto) (0 - 2 %) 0.1 Plt Count, EDTA (150 - 400 K/uL) 214 PUBS MCHC (31 - 37 g/dL) 32 01/23 2221 Blood Gas Sample Site LR Total CO2 (24.0 - 30.0 mmol/L) 33.3 ABG pH (7.35 - 7.45) 7.22 ABG pCO2 at Pt Temp (35 - 45 mmHg) 75.4 ABG pO2 at Pt Temp (60.0 - 80.0 mmHg) 61.0 ABG HCO3 (20.0 - 26.0 mmol/L) 31.0 ABG O2 Sat Calc/Vladimir (95.1 - 100.0 %) 89.8 ABG Base Excess (-6.0 - -6.0 mmol/L) 2.6 ABG Reduced Hgb (%) 10.0 ABG Carboxyhemoglobin (0.5 - 1.5 %) 2.0 ABG Methemoglobin (0.4 - 1.5 %) -0.1 Serjio Test YES Other Total Hgb (12.0 - 16.0 g/dL) 12.3 A-a O2 Gradient (7.0 - 14.0 mmHg) 79.7 Hgb O2 Saturation (95.0 - 100.0 %) 88.1 Respiration Rate (/MIN) 20 O2 Liters/Min (0 - 20 L/MIN) 3 Vent Mode NC FiO2 (20 - 101 %) 32 Coagulation INR (0.8 - 1.2) 2.1 Toxicology Urine Opiates Screen (NEGATIVE) NEGATIVE Urine Methadone Screen (NEGATIVE) NEGATIVE Ur Barbiturates Screen (NEGATIVE) NEGATIVE U Amphetamin/Meth Scrn (NEGATIVE) NEGATIVE MDMA (Ecstasy) Screen (NEGATIVE) POSITIVE U Benzodiazepines Scrn (NEGATIVE) NEGATIVE Urine Cocaine Screen (NEGATIVE) NEGATIVE U Cannabinoids Screen (NEGATIVE) NEGATIVE Urines Urine Color YELLOW Urine Appearance SL CLOUDY Urine pH (5.0 - 8.0) 6.0 Ur Specific [place] (1.010 - 1.030) 1.025 Urine Protein (NEGATIVE) 2+ Urine Ketones (NEGATIVE) NEGATIVE Urine Blood (NEGATIVE) 3+ Urine Nitrite (NEGATIVE) NEGATIVE Urine Bilirubin (NEGATIVE) NEGATIVE Urine Urobilinogen (0.2 - 1.0 EU/dL) 0.2 Ur Leukocyte Esterase (NEGATIVE) NEGATIVE Urine RBC (0 - 1 rbc/hpf) 10-25 Urine WBC (0 - 1 wbc/hpf) 1-3 Ur Epithelial Cells (0 - 5 EPI/hpf) RARE Urine Bacteria (NONE SEEN) TRACE (<1+) Urine Glucose (NEGATIVE) NEGATIVE Urine Comment CULT NOT INDICATED Microbiology Date/Time Procedure - Status Source Growth 01/23 2100 Blood Culture - RECD BLOOD Imaging CT of head 1. Motion artifact decreases the quality of the study. 2. No definite acute process. 3. Mild age related atrophy and white matter changes. Chest x-ray 1. Limited due to low lung volumes. 2. Probable bibasilar atelectatic changes although underlying infection is not excluded. Assessment and Plan Problem List 1. Altered mental status Plan Patient was found obtunded earlier in the day through nursing facility. Patient Watch and monitor. Nursing staff to assess progressive decline Patient has wishes to remain a DNR/DNI Maintain fluid hydration. By mouth for comfort; avoid by mouth with elevated respiratory rate. Irregularly irregular heart rate with episodes of V. tach. We'll plan to remove monitors at this time. Patient is considered comfort. Family has been informed 2. Hypoxia Plan Hypoxic in the emergency department. ED Department placed a nasal trumpet with some improvement. This will be left in order to maintain a patent upper airway Patient will be turned frequently avoiding dependent atelectasis. Continue with the oxygen supplementation. The mask may be better than nasal cannula IV antibiotics including Levaquin and ceftriaxone. We'll narrow as returning cultures 3. Diabetes Plan Diabetes. Will placed on a sliding scale, moderate intensity of sugar control. Limited discovery at this time. Cover her meals; avoidance of hypoglycemic events. Maintain sugars between 130 to 160. ADA diet will be offered once more alert. In the meantime, may consider sips of boost 4. History of DVT (deep vein thrombosis) Plan History DVT. Patient is A. fib, paroxysmal. Patient will be on Lovenox therapeutic. 80 mg subcutaneous twice a day. This will be held or continued at the discretion of the Attending Although warfarin during this hospitalization; Due to the labile nature testing and delivery. 5. VIET (obstructive sleep apnea) Plan Rarely using CPAP at this time. This can be be offered but unlikely ongoing fixture at this time. 6. Congestive heart failure (CHF) Plan History of CHF; attempt to optimize 7. Pneumonia Plan Described as a probable pneumonia on chest film. Patient has rales bilaterally. Patient will be started on ceftriaxone, levofloxacin The antibiotics will be narrowed S cultures are followed. Pneumonia and legionella screening lab Current status: Guarded, unstable Anticipated discharge date: Anticipated discharge in 2-3 days Anticipated discharge placement: [facility] Patient care time: Time spent in chart review, patient interview, physical exam, CPOE, and care documentation: 70 minutes Visit to patient today: 1 Complexity of care: Mild to moderate Initial patient evaluation: Emergency department DVT prophylaxis: Mechanical; GI ppx , pantoprazole 40 mg daily DVT Lovenox therapeutic E&M Codes Admission: Inpt-High/03571
--- NOTE | 2017-01-24 03:30 | Progress Note ---
Subjective General ADVANCED CARE PLAN History of Present Illness 77-year-old white female with a PMH of history of VIET, Obesity, Depression, DVT , Gout, Diabetes who presented to [facility] emergency room on the day of admission non -responsive with mental status and notable hypoxia, Pt. was seen in the [facility] ER for an evaluation and findings consistent with pain related to a potential pneumonia, poor upper airway control. Secondarily the patient was admitted for further evaluation and treatment by Jan Roper M.D. A discussion was undertaken with the patient regarding previous advance care arrangements/decisions. The following advanced directives were noted by the patient and discussed with me at the time of admission. ADVANCED DIRECTIVES: 1. Living will; not available; DNR/DNI orders. 2. POLST: yes 3. CODE STATUS: DNR/DNI 4. [facility] Power Outside [facility] [facility]: Deborah Chavarria 5. Donor card: uknown The patient has expressed interest in not pursuing any form of resuscitation at this time. She has opted not to pursue intubation/mechanical ventilation, CPR, electrical cardioversion, or life-sustaining efforts involving drugs at the time of cardiopulmonary arrest. The patient's wishes were documented in the chart and orders regarding the patient's wishes entered into the [employer] CPOE system. The "Advance Care Plan Document" was not distributed to patient to discuss with her family. Less than 30 minutes was spent in performing the above tasks and documentation of the patient's advanced care plan.
--- NOTE | 2017-01-24 03:30 | Progress Note ---
Subjective General ADVANCED CARE PLAN History of Present Illness 77-year-old white female with a PMH of history of VIET, Obesity, Depression, DVT , Gout, Diabetes who presented to [facility] emergency room on the day of admission non -responsive with mental status and notable hypoxia, Pt. was seen in the [facility] ER for an evaluation and findings consistent with pain related to a potential pneumonia, poor upper airway control. Secondarily the patient was admitted for further evaluation and treatment by Jan Roper M.D. A discussion was undertaken with the patient regarding previous advance care arrangements/decisions. The following advanced directives were noted by the patient and discussed with me at the time of admission. ADVANCED DIRECTIVES: 1. Living will; not available; DNR/DNI orders. 2. POLST: yes 3. CODE STATUS: DNR/DNI 4. [facility] [employer] [facility]: Deborah Chavarria 5. Donor card: uknown The patient has expressed interest in not pursuing any form of resuscitation at this time. She has opted not to pursue intubation/mechanical ventilation, CPR, electrical cardioversion, or life-sustaining efforts involving drugs at the time of cardiopulmonary arrest. The patient's wishes were documented in the chart and orders regarding the patient's wishes entered into the [employer] CPOE system. The "Advance Care Plan Document" was not distributed to patient to discuss with her family. Less than 30 minutes was spent in performing the above tasks and documentation of the patient's advanced care plan.
[2017-01-24 04:11] VITALS: BP 97/51
--- NOTE | 2017-01-24 04:22 | NUR ---
PT TO FLOOR - ROOM 301, VIA [facility] WITH AVIATION SAFETY INSPECTOR. PT MOVED TO BED WITH NAHOMI SLIDER. PLACED ON OXYMASK AT 6 LITERS - O2 SATS AT 95%. DECREASED O2 TO 5 LITERS - O2 SATS IN THE 90'S. WHEN PT LAYS FLAT O2 SATS DROP IN THE MID TO LOW 80'S. NASAL TRUMPET IN PLACE. PERICARE PROVIDED, LINENS CHANGED, GOWN CHANGED, PICTURES TAKEN OF EXCORIATED SKIN LOCATED UNDER BREASTS BILAT AND ABDOMINAL FOLDS. SKIN WASHED, PICTURES TAKEN AND BARRIER CREAM APPLIED. PT IS NON COMMUNICATIVE, UNRESPONSIVE TO VERBAL AND PHYSICAL STIMULI. PUPILS EQUAL AND SLUGGISH. NEW IV PLACED TO LFA - IV FLUIDS INFUSING AT 100/HR. IV DCD INTACT TO RH - DISPLACED IN TRANSPORT. PT IS AN EVERY 2 HOUR TURN. NO SCDS - PT IS ON COUMADIN - INR AT 2.1. DR SANCHEZ AWARE OF PTS CURRENT STATUS.
--- NOTE | 2017-01-24 04:53 | NUR ---
DR SANCHEZ TO FLOOR - AWARE OF PTS CURRENT STATUS - NON RESPONSIVE, HEART RATE AT 125, O2 SATS AT 89-90% ON 5 LITERS OXYMASK. NO NEW ORDERS RECIEVED AT THIS TIME.
[2017-01-24] MEDS ORDERED: ABILIFY5 MG PO (06:06)
[2017-01-24] MEDS ORDERED: DULCOLAX5 MG PO (06:15)
[2017-01-24] MEDS ORDERED: GERI-LANTA PO (06:19)
[2017-01-24] MEDS ORDERED: KLOR-CON 1010 MEQ PO (06:22)
[2017-01-24] MEDS ORDERED: TRAZODONE HCL50 MG PO (06:27)
[2017-01-24] MEDS ORDERED: DEMADEX10 MG PO (06:29)
[2017-01-24] MEDS ORDERED: ACID REDUCER75 MG PO (06:30)
[2017-01-24] MEDS ORDERED: COUMADIN1 MG PO (06:32)
[2017-01-24 06:55] VITALS: BP 130/73
[2017-01-24 09:05] VITALS: BP 114/60
--- NOTE | 2017-01-24 10:32 | NUR ---
PT IS UNRESPONSIVE TO ANY STIMULI. OXYGEN WEANED TO 2.5 L OXYMASK THIS MORNING, SATS HAD BEEN 88-91%. FOLLOWING A POSITION CHANGE, PT BEGAN TO DESATURATE TO LOW 80'S AND BREATHING APPEARED MORE LABORED. OXYMASK TURNED UP TO 5L TO MAINTAIN SIMILAR O2 SATS. MORPHINE GIVEN SUBLINGUAL FOR APPARENT DISCOMFORT, WITH RELIEF. FAMILY AT BEDSIDE. FAMILY CONFERENCE PLANNED FOR THIS AFTERNOON WITH DR. WATTS AND FAMILY MEMBERS. COMFORT MEASURES, TOTAL CARE.
--- NOTE | 2017-01-24 12:21 | NUR ---
NUTRITION NOTE: This RD rev'd pt dx and hx. Per nsg pt to be comfort measures. RD avail for further consult if desired.
[2017-01-24 14:32] VITALS: BP 101/47
--- NOTE | 2017-01-24 15:54 | DIAGNOSTIC IMAGING REPORT ---
PROCEDURE: MR BRAIN WITHOUT CONTRAST INDICATION: Altered mental status. Possible CVA. TECHNIQUE: T1 sagittal images. T1, T2, FLAIR, gradient echo, gradient, and diffusion axial images with ADC map COMPARISON: Comparison made to a head CT on 01/23/2017. FINDINGS: Study is partially limited due to moderate motion and body habitus. Allowing for motion, there is evidence of mild old small vessel disease of the white matter. There is no evidence of acute process (diffusion imaging). There is not a mass effect or hydrocephalous. IMPRESSION: 1. 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 2. Otherwise negative MRI of the brain. No evidence of acute process. 3. Findings discussed with Dr. Margareth Slois.
--- NOTE | 2017-01-24 17:01 | NUR ---
FOLLOWING CONFERENCE WITH , PT REMAINS DNR. ORDERS REC'D FOR MRI. PT TAKEN DOWN TO MRI BY CHAPIN BYRD, WHO REMAINED AT BEDSIDE THROUGHOUT PROCEDURE. ON TRANSPORT BACK TO UNIT, PT BECAME APNEIC AND CYANOTIC. PT WAS QUICKLY REPOSITIONED BY STAFF, SUCTION ATTEMPTED. AGONAL BREATHING AND VENTRICULAR RHYTHM NOTED. HEART RHYTHM QUICKLY PROGRESSED TO ASYSTOLE AND PT PEACEFULLY AT 1549. MD AND FAMILY NOTIFIED BY THIS RN.
--- NOTE | 2017-01-24 20:44 | ED MAR SUMMARY ---
..... Medication Administration Record [facility] [address] [place] [address] Patient: MAYURI BRIAN Visit ID: [id number] 76y, F Weight: 134.7 kg Height/Length: 66 in BMI: 48 ALLERGIES: Iodine, Latex Start 21:00 01/23/2017 Jeannette Lee R.N., Stop 22:41 01/23/2017 Jeannette Lee R.N. Medication Administered: IV NS (SALINE), Dose: IV Fluids, Rate: 250 mL/hr, Site: #1 left hand. Medication Ordered: IV NS : initial bolus 500 mL (1000 mL/hr), then 250 mL/hr for 4h (NOW); Routine. Start 21:02 01/23/2017 Jeannette Lee R.N., Stop 22:42 01/23/2017 Jeannette Lee R.N. Medication Administered: LEVAQUIN [IVPB] (LEVOFLOXACIN), Dose: 750 mg IVPB, Rate: 100 mL/hr, Dispensed: 150 mL bag, Site: #1 left hand. Medication Ordered: Levaquin IV 750 mg/150 mL (NOW). Start 22:42 01/23/2017 Jeannette Lee R.N., Stop 02:42 01/24/2017 Jeannette Lee R.N. Medication Administered: IV NS (SALINE), Dose: IV Fluids, Rate: 250 mL/hr, Dispensed: 1000 mL bag, Site: #1 left hand. Medication Ordered: IV NS : initial bolus 500 mL (1000 mL/hr), then 250 mL/hr for 4h (NOW); Routine. Start 22:46 01/23/2017 Jeannette Lee R.N., Stop 23:48 01/23/2017 Jeannette Lee R.N. Medication Administered: VANCOMYCIN [IVPB], Dose: 1 gm IVPB over 1 hour(s), Rate: 200 mL/hr, Dispensed: 200 mL bag, Site: #1 left hand. Medication Ordered: Vancomycin IV 25 mg/kg (NOW). Start 23:49 01/23/2017 Jeannette Lee R.N., Stop 00:49 01/24/2017 Jeannette Lee R.N. Medication Administered: VANCOMYCIN [IVPB], Dose: 1 gm IVPB over 1 hour(s), Rate: 200 mL/hr, Dispensed: 200 mL bag, Site: #1 left hand. Medication Ordered: Vancomycin IV 25 mg/kg (NOW). Given 02:31 01/24/2017 Jeannette Lee R.N., Stop 02:37 01/24/2017 Jeannette Lee R.N. Medication Administered: ALBUTEROL [NEB TX], Dose: 1 unit dose Neb TX. Medication Ordered: Albuterol Neb Tx 1 unit dose (NOW).
--- NOTE | 2017-01-24 20:44 | ED MED RECONCILIATION SUMMARY ---
Patient: MAYURI BRIAN Medication Reconciliation Report [facility] VisitID: [id number] [address] [place] [address] 76y, F Registration Date/Time: 01/23/2017 Weight: 134.7 kg Height/Length: 66 in. BMI: 48.0 ALLERGIES: Iodine, Latex The patient's Home Medications are listed below: THE FOLLOWING MEDICATIONS NEED TO BE RECONCILED: Abilify Oral (2 mg) 2 tablets, daily Allopurinol Oral 100 mg, daily ARIPiprazole Oral 2 mg q day Bisacodyl Oral (5 mg) 2 tablets Calcium + D Oral (500-1000-40 mg-unt-mcg) 1 tablet, twice daily Calcium 600+D Oral, daily Cardizem Oral 180 mg, daily Coumadin Oral 3 mg, daily, 5 days a week. 4mg 2 days a week Dulcolax Oral (5 mg) 2 tablets, PRN Jayna lanta 15 ml prn HumaLOG Subcutaneous 5 units q am and sliding scale before meals, every AM Ketoconazole External Klor-Con M20 Oral (20 meq) 2 tablets, daily Lasix Oral 40 mg, daily Levemir FlexTouch Subcutaneous (100 unit/mL) Lisinopril Oral 10 mg, daily Loperamide prn Milk of Magnesia Oral Multivitamins Oral 1 pill, daily Pantoprazole Sodium Oral 40 mg, daily Potassium Chloride Oral 20 meq, at bedtime Pravastatin Sodium Oral 20 mg, daily Pravastatin Sodium Oral (20 mg) 1 tablet, at bedtime Ranitidine HCl Oral (150 mg) 1 capsule, daily Senna Oral (8.6 mg) 1 tablet Torsemide Oral (20 mg) 3 tablets, daily TraZODone HCl Oral 25mg, at bedtime Triamcinolone Acetonide External Tylenol Oral 325 mg, 4x a day Vitamin D (Cholecalciferol) Oral 1000units, daily Warfarin Sodium Oral (3 mg) 1 tablet, daily Wellbutrin Oral 100 mg, 2x a day, 100mg as evening dose. The source(s) of the original Home Medication information: Not obtained. The following Medications were given to the patient in the Emergency Department: Levaquin [IVPB] IVPB bolus 0, then 750 mg 100 mL/hr, administered: 01/23/2017 9:02:00 PM IV NS IV Fluids bolus 0, then 250 mL/hr, administered: 01/23/2017 9:00:00 PM IV NS IV Fluids bolus 0, then 250 mL/hr, administered: 01/23/2017 10:42:00 PM Vancomycin [IVPB] IVPB bolus 0, then 1 gm 200 mL/hr, administered: 01/23/2017 10:46:00 PM Vancomycin [IVPB] IVPB bolus 0, then 1 gm 200 mL/hr, administered: 01/23/2017 11:49:00 PM Albuterol [Neb Tx] Neb TX 1 unit dose, administered: 01/24/2017 2:31:00 AM The following Medications were prescribed to the patient: None.
--- NOTE | 2017-01-24 20:44 | ED MAR SUMMARY ---
..... Medication Administration Record [facility] [address] [place] [address] Patient: MAYURI BRIAN Visit ID: [id number] 76y, F Weight: 134.7 kg Height/Length: 66 in BMI: 48 ALLERGIES: Iodine, Latex Start 21:00 01/23/2017 Jeannette Lee R.N., Stop 22:41 01/23/2017 Jeannette Lee R.N. Medication Administered: IV NS (SALINE), Dose: IV Fluids, Rate: 250 mL/hr, Site: #1 left hand. Medication Ordered: IV NS : initial bolus 500 mL (1000 mL/hr), then 250 mL/hr for 4h (NOW); Routine. Start 21:02 01/23/2017 Jeannette Lee R.N., Stop 22:42 01/23/2017 Jeannette Lee R.N. Medication Administered: LEVAQUIN [IVPB] (LEVOFLOXACIN), Dose: 750 mg IVPB, Rate: 100 mL/hr, Dispensed: 150 mL bag, Site: #1 left hand. Medication Ordered: Levaquin IV 750 mg/150 mL (NOW). Start 22:42 01/23/2017 Jeannette Lee R.N., Stop 02:42 01/24/2017 Jeannette Lee R.N. Medication Administered: IV NS (SALINE), Dose: IV Fluids, Rate: 250 mL/hr, Dispensed: 1000 mL bag, Site: #1 left hand. Medication Ordered: IV NS : initial bolus 500 mL (1000 mL/hr), then 250 mL/hr for 4h (NOW); Routine. Start 22:46 01/23/2017 Jeannette Lee R.N., Stop 23:48 01/23/2017 Jeannette Lee R.N. Medication Administered: VANCOMYCIN [IVPB], Dose: 1 gm IVPB over 1 hour(s), Rate: 200 mL/hr, Dispensed: 200 mL bag, Site: #1 left hand. Medication Ordered: Vancomycin IV 25 mg/kg (NOW). Start 23:49 01/23/2017 Jeannette Lee R.N., Stop 00:49 01/24/2017 Jeannette Lee R.N. Medication Administered: VANCOMYCIN [IVPB], Dose: 1 gm IVPB over 1 hour(s), Rate: 200 mL/hr, Dispensed: 200 mL bag, Site: #1 left hand. Medication Ordered: Vancomycin IV 25 mg/kg (NOW). Given 02:31 01/24/2017 Jeannette Lee R.N., Stop 02:37 01/24/2017 Jeannette Lee R.N. Medication Administered: ALBUTEROL [NEB TX], Dose: 1 unit dose Neb TX. Medication Ordered: Albuterol Neb Tx 1 unit dose (NOW).
--- NOTE | 2017-01-24 20:44 | ED DISCHARGE INSTRUCTIONS ---
Patient: MAYURI BRIAN General Instructions [facility] VisitID: [id number] [place] [place] [address] 76y, F Registration Date/Time: 01/23/2017 Changed mental status with lethargy and confusion. Bacterial pneumonia with hypoxemia. Vital signs recorded and reviewed; empiric antibiotics given in the ED. pre-renal azotemia Dehydration No Code. ADDITIONAL INFORMATION Confusion Confusion is a change in a persons ability to think clearly. There may be trouble recognizing familiar people and places, or knowing what day it is. Memory, judgement and decision-making may also be affected. In severe cases there may be limited or no response to verbal commands. Confusion may occur suddenly or develop gradually over time. There are many injuries and medical conditions that can cause this problem. These include brain injury, side effect of medication, intoxication, withdrawal from drugs, infection, stroke, dementia,mental illness and other causes. The exam and testing today did not show the cause of this problem. Further testing will be needed. Specific treatment and hope for recovery depend on the cause of this symptom. Home Care: Be sure someone is with the confused person at all times. He/she should not be left alone or unsupervised. Keep medicines (prescription and [id number]) in a secure place, under the caregivers control. A person with confusion should not be allowed to take their own medicines.This needs to be supervised by the caregiver. Ways to help a person with confusion: Activities:Establish a daily routine. Change can be a source of stress for someone with confusion. Make a time schedule for common tasks such as: bathing, dressing, taking medicines, meals, going for walks, shopping, naps and bed time. Communication:Speak slowly and clearly with a gentle tone of voice. Use short simple words and sentences. Ask one question at a time. Do not interrupt, criticize or argue. Be calm and supportive. Use friendly facial expressions. Use pointing and touching to help communicate. If there has been loss of long-term memory, do not ask questions about past events. This would only cause frustration for the person. Behavioral tips:Use lists, signs, family photos, clocks and calendars as memory aids. Label cabinets and drawers. Try to distract, not confront, the patient. When he/she becomes frustrated or upset, redirect his/her attention to eating or some other activity of interest. Medical-Legal tips: If this proves to be a permanent condition, talk to your doctor and/or vehicle window tinter about getting a Power of Communications Department Head for health care and for financial decisions. It is best to do this while the person can still sign legal documents and make his/roly own legal decisions. Otherwise, a court order will be required. Follow-Up with the patients doctor or as advised by our staff for further testing. Get Prompt Medical Attention if any of the following occur: Frequent falling Refusal to eat or drink Violent behavior or behavior becomes too difficult to manage at home Increased drowsiness, or failure to respond normally Increasing headache, nausea or repeated vomiting Numbness or weakness of the face, one arm or one leg Slurred speech, trouble speaking, walking or seeing Fainting spell, dizziness or seizure Unexplained fever over 100.4 F (38.0 C) oral Pneumonia (Adult) Pneumonia is an infection deep within the lung, in the small air sacs (alveoli). It may be due to a virus or bacteria and is usually treated with an antibiotic. Severe cases require treatment in the hospital. Milder cases can be treated at home. Symptoms usually start to improve during the first2 days of treatment. Home Care: Rest at home for the first 23 days or until you feel stronger. When resuming activity, dont let yourself become overly tired. Avoid exposure to cigarette smoke (yours or others). You may use acetaminophen (Tylenol) or ibuprofen (Motrin, Advil) to control fever or pain, unless another medicine was prescribed. [NOTE: If you have chronic liver or kidney disease or ever had a stomach ulcer or GI bleeding, talk with your doctor before using these medicines.] (Aspirin should never be used in anyone under 18 years of age who is ill with a fever. It may cause severe liver damage.) Your appetite may be poor so a light diet is fine. Keep well hydrated by drinking 68 glasses of fluids per day (water, sport drinks such as Gatorade, sodas without caffeine, juices, tea, soup, etc.). This will help loosen secretions in the lung, making it easier for you to cough up the phlegm (sputum). If you also have heart or kidney disease, check with your doctor before you drink extra amounts of fluids. Finish all antibiotic medicine prescribed, even if you are feeling better after a few days. Follow Up with your doctor in the next 23 days (or as advised) to be sure you are responding properly to the medicine. [NOTE: If you are age 65 or older, or if you have chronic lung disease (asthma, emphysema or COPD), we recommendthe pneumococcal vaccination and a yearlyinfluenzavaccination(flu-shot) every . Ask your doctor about this.] Get Prompt Medical Attention if any of the following occur: Not getting better within the first 48 hours of treatment Increasing shortness of breath or rapid breathing (over 25 breaths/minute) Coughing up blood or increasing chest pain with breathing Fever of 100.4F (38C) oral or higher, not better with fever medication Increasing weakness, dizziness or fainting Increasing thirst or dry mouth Sinus pain, headache or a stiff neck Chest pain not caused by coughing You have been given the following additional information: Confusion Pneumonia (Adult) (Electronically signed by Mikal Cano MD 01/24/2017 20:43)
--- NOTE | 2017-01-24 20:44 | ED MED RECONCILIATION SUMMARY ---
Patient: MAYURI BRIAN Medication Reconciliation Report [facility] VisitID: [id number] [address] [place] [address] 76y, F Registration Date/Time: 01/23/2017 Weight: 134.7 kg Height/Length: 66 in. BMI: 48.0 ALLERGIES: Iodine, Latex The patient's Home Medications are listed below: THE FOLLOWING MEDICATIONS NEED TO BE RECONCILED: Abilify Oral (2 mg) 2 tablets, daily Allopurinol Oral 100 mg, daily ARIPiprazole Oral 2 mg q day Bisacodyl Oral (5 mg) 2 tablets Calcium + D Oral (500-1000-40 mg-unt-mcg) 1 tablet, twice daily Calcium 600+D Oral, daily Cardizem Oral 180 mg, daily Coumadin Oral 3 mg, daily, 5 days a week. 4mg 2 days a week Dulcolax Oral (5 mg) 2 tablets, PRN Jayna lanta 15 ml prn HumaLOG Subcutaneous 5 units q am and sliding scale before meals, every AM Ketoconazole External Klor-Con M20 Oral (20 meq) 2 tablets, daily Lasix Oral 40 mg, daily Levemir FlexTouch Subcutaneous (100 unit/mL) Lisinopril Oral 10 mg, daily Loperamide prn Milk of Magnesia Oral Multivitamins Oral 1 pill, daily Pantoprazole Sodium Oral 40 mg, daily Potassium Chloride Oral 20 meq, at bedtime Pravastatin Sodium Oral 20 mg, daily Pravastatin Sodium Oral (20 mg) 1 tablet, at bedtime Ranitidine HCl Oral (150 mg) 1 capsule, daily Senna Oral (8.6 mg) 1 tablet Torsemide Oral (20 mg) 3 tablets, daily TraZODone HCl Oral 25mg, at bedtime Triamcinolone Acetonide External Tylenol Oral 325 mg, 4x a day Vitamin D (Cholecalciferol) Oral 1000units, daily Warfarin Sodium Oral (3 mg) 1 tablet, daily Wellbutrin Oral 100 mg, 2x a day, 100mg as evening dose. The source(s) of the original Home Medication information: Not obtained. The following Medications were given to the patient in the Emergency Department: Levaquin [IVPB] IVPB bolus 0, then 750 mg 100 mL/hr, administered: 01/23/2017 9:02:00 PM IV NS IV Fluids bolus 0, then 250 mL/hr, administered: 01/23/2017 9:00:00 PM IV NS IV Fluids bolus 0, then 250 mL/hr, administered: 01/23/2017 10:42:00 PM Vancomycin [IVPB] IVPB bolus 0, then 1 gm 200 mL/hr, administered: 01/23/2017 10:46:00 PM Vancomycin [IVPB] IVPB bolus 0, then 1 gm 200 mL/hr, administered: 01/23/2017 11:49:00 PM Albuterol [Neb Tx] Neb TX 1 unit dose, administered: 01/24/2017 2:31:00 AM The following Medications were prescribed to the patient: None.
--- NOTE | 2017-01-30 23:12 | EXPIRATION SUMMARY ---
ADMITTED: 01/23/2017 : 01/24/2017 ADMITTING DIAGNOSES: 1. altered mental status 2. Hypoxia 3. Diabetes 4. Obstructive sleep apnea 5. Congestive heart failure 6. Possible pneumonia FINAL DIAGNOSES: 1. acute on chronic congestive heart failure 2. Obstructive sleep apnea 3. Possible pneumonia 4. Hypoxia 5. Diabetes CAUSE OF : respiratory failure, acute on chronic CHF, Acute OR, BRIEF HISTORY: This is a 76-year-old female with past medical history including obstructive sleep apnea, obesity, depression, gout, diabetes and congestive heart failure, presenting to the emergency department nonresponsive and hypoxic. The patient was seen in the emergency department and thought to possibly have pneumonia, poor upper airway control. The patient was admitted for further evaluation and treatment. HOSPITAL COURSE: The patient received IV antibiotics, initially IV fluids; however, it became clear that more than likely patient was having acute on chronic CHF exacerbation and IV fluids were decreased and diuretics were given. The patient was somnolent through this entire period and concern for sepsis and/or overwhelming congestive heart failure was entertained. A family conference was held the day of and the family was informed of the dire situation. They agreed that patient should be DO NOT RESUSCITATE, but they wanted to treat her aggressively for 24 hours to see if she quickly turned around; however, if no improvement within 24 hrs, the plan was to change her to comfort care. An MRI of her brain was ordered and was negative for CVA on the day of . As patient was being transported back from the MRI, patient was noted to become apneic and cyanotic. The patient was quickly repositioned by staff and suction was attempted. Agonal breathing and ventricular rhythm were noted. Heart rate quickly progressed to asystole and patient peacefully at 1549 hours. PHYSICAL EXAMINATION: This is an elderly patient lying in bed, nonresponsive. LUNGS: The patient with increased work of breathing, somnolence, diminished air movement diffusely with crackles in the lower booker. HEART: S1, S2, regular rate and rhythm. No S3, S4, gallops, or rubs. There is a 2/6 systolic murmur increased at the base. ABDOMEN: Soft, nontender, nondistended without hepatosplenomegaly or masses. Bowel sounds are active. EXTREMITIES: There is 1-2+ bilateral lower extremity edema.
== END 2017-01-24 15:49 | disposition expired | DRG 292 ==
LOC: ED SRH 20:08 → TRANS SRH 23:05 → CC SRH 01-24 03:54 → TRANS SRH 01-24 03:54 → CC SRH 01-24 03:54
PROVIDERS: ADMIT Emergency Medicine Emergency Medical Services
DX: I50.9 Heart failure, unspecified (principal); I47.2 Ventricular tachycardia; R09.02 Hypoxemia; I48.0 Paroxysmal atrial fibrillation; E86.0 Dehydration; R39.2 Extrarenal uremia; E11.22 Type 2 diabetes mellitus with diabetic chronic kidney disease; N18.9 Chronic kidney disease, unspecified; E11.51 Type 2 diabetes mellitus with diabetic peripheral angiopathy without gangrene; E11.40 Type 2 diabetes mellitus with diabetic neuropathy, unspecified; Z79.4 Long term (current) use of insulin